=== PATIENT | female | born 1960 | race Caucasian/White ===

== ENCOUNTER → 2021-03-02 | Outpatient (CLI) | payer BC ==
--- NOTE | 2021-03-03 14:39 | SLEEPCENT ---
DATE: 03/02/2021 ORDERED BY: Yenifer Love NP Nocturnal polysomnography was performed for evaluation of sleep physiology in this patient with a history of snoring and abnormal nocturnal oximetry. Six hours and 43 minutes of data were reviewed. There were 319 minutes of sleep identified. Sleep latency was prolonged at 40 minutes. REM latency was prolonged at 265 minutes. Sleep architecture showed fragmentation and poor progression. One REM cycle was seen late in the study. Overall sleep efficiency was 72%. The electrocardiogram showed a sinus rhythm with an average heart rate of 68 beats per minute. EEG showed normal waveforms for wake and sleep. There were 281 respiratory events identified of 10 seconds in duration or greater for an apnea-hypopnea index of 52.8. The events were primarily obstructive, more severe in stage REM but not exclusive to that stage, not associated with body posture. Arousals were seen 16.7 times per hour and oxygen desaturations were seen into the 70s. There was some minor limb activity. Limb movement arousal index was 2.3. IMPRESSION: Severe obstructive sleep apnea syndrome (G47.33). Apnea-hypopnea index 52.8. RECOMMENDATION: The patient should be encouraged to return to [facility] at her earliest convenience for pressure therapy. In the interim, alcohol and sedative avoidance should be practiced and caution exercised during the operation of motor vehicles. cc: Solo Sierra MD
== END ==
LOC: M SLEEP 20:00
PROVIDERS: ATTEND Nurse Practitioner Adult Health
DX: G47.33 Obstructive sleep apnea (adult) (pediatric) (principal)

== ENCOUNTER → 2021-04-28 | Outpatient (CLI) | payer BC | LOC: M SLEEP 20:00 | PROVIDERS: ATTEND Nurse Practitioner Adult Health | DX: G47.33 Obstructive sleep apnea (adult) (pediatric) (principal) ==